=== PATIENT | male | born 1940 | race Caucasian/White ===

== ENCOUNTER 2019-12-21 17:00 | Observation (INO) | payer MEDICARE ==
[~2019-12-21] VITALS: Ht 185.4 cm; Wt 109.0 kg
[~2019-12-21 17:00] MED LIST: ABAC1TAB7 PO; ATOR10TA9 PO; AZIT250T89 PO; CARB1TAB22 PO; CARB25TA3 PO; CEPH-368 PO; DARU800T2 PO; DEXA2TAB PO; DOLU50TA PO; GABA300C10 PO; GLIP5TAB10 PO; HYDR-3240 PO; INSU100V13 SQ; LOSA50TA14 PO; RITO100T PO; TAMS-11 PO; TIZA4CAP2 PO; TRAZ-175 PO
[2019-12-21 18:08] LABS: ALANINE AMINOTRANSFERASE 13 U/L (12-78); ALBUMIN 3.1 g/dL (3.4-5.0); ANION GAP 5 mmol/L (5-15); CALCIUM 8.7 mg/dL (8.5-10.1); CHLORIDE 102 mmol/L (98-107); CREATININE 1.87 mg/dL (0.7-1.3)
[2019-12-21 18:11] LABS: ALKALINE PHOSPHATASE 57 U/L (45-117); BILIRUBIN,TOTAL 1.3 mg/dL (0.2-1.0); TOTAL PROTEIN 7.8 g/dL (6.4-8.2)
[2019-12-21] MEDS ORDERED: SODIUM CHLORIDE FLUSH 10ML SYR IVF ONE (18:30)
[2019-12-21 18:43] LABS: MEAN CORPUSCULAR HEMOGLOBIN 34.7 pg (27.5-34.5); MEAN CORPUSCULAR HGB CONC 34.1 g/dL (33.2-36.2); MEAN CORPUSCULAR VOLUME 101.6 fL (81-97); MEAN PLATELET VOLUME 7.4 fL (7.4-10.4); PLATELET COUNT 99 x10^3/uL (130-400); RED BLOOD COUNT 3.07 x10^6/uL (4.38-5.82); RED CELL DISTRIBUTION WIDTH 16.8 % (9.4-14.8)
[2019-12-21 18:44] LABS: BASOPHILS # (AUTO) 0.02 x10^3/uL (0-0.1); BASOPHILS % (AUTO) 0 % (0-1); EOSINOPHILS # (AUTO) 0.03 x10^3/uL (0-0.4); EOSINOPHILS % (AUTO) 1 % (1-7); LYMPHOCYTES # (AUTO) 1.78 x10^3/uL (1-3.4); LYMPHOCYTES % (AUTO) 37 % (22-44); MD SCAN; MONOCYTES # (AUTO) 0.17 x10^3/uL (0.2-0.8); MONOCYTES % (AUTO) 4 % (2-9); NEUTROPHILS # (AUTO) 2.84 x10^3/uL (1.8-6.8); NEUTROPHILS % (AUTO) 59 % (42-75)
--- NOTE | 2019-12-21 18:51 | NUR ---
RECEIVED REPORT FROM RODRIGO SINGH. PT LAYING IN BED, DENIES PAIN, VSS, RESPIRATIONS EVEN AND UNLABORED, POSITIONED TO COMFORT. CALL LIGHT WITHIN REACH, PHONE IN HAND. UPDATED ON POC. ALL NEEDS MET AT THIS TIME.
--- NOTE | 2019-12-21 19:02 | NUR ---
[facility] proxy charted for RODRIGO Blank.
[2019-12-21 19:35] LABS: AMPHETAMINE SCREEN, URINE Negative (Negative); BARBITURATE SCREEN, URINE Negative (Negative); BENZODIAZEPINE SCREEN, URINE Negative (Negative); CANNABINOID SCREEN, URINE Negative (Negative); COCAINE SCREEN, URINE Negative (Negative); METHADONE SCREEN, URINE Negative (Negative); OPIATE SCREEN, URINE Negative (Negative)
[2019-12-21 19:36] LABS: MICROSCOPIC INDICATED
--- NOTE | 2019-12-21 19:42 | NUR ---
PT SITTING IN BED, EYES CLOSED, RESPIRATIONS EVEN AND UNLABORED, NO SIGNS OF DISTRESS, ASKING FOR FOOD.
[2019-12-21 19:45] LABS: SALICYLATE LEVEL < 1.7 mg/dL (2.8-20.0)
--- NOTE | 2019-12-21 19:52 | NUR ---
PT PROVIDED WITH FOOD, ERP OKAY. PT STATING "I WANT TO GO HOME." PT EDUCATED THAT RESULTS ARE PENDING AND THAT THE ERP WILL BE IN TO UPDATE HIM ON POC. NEEDS MET AT THIS TIME.
[2019-12-21] MEDS ORDERED: DOLU1TAB PO (20:02)
[2019-12-21] MEDS ORDERED: MIRT7.5T8 PO (20:07)
[2019-12-21] MEDS ORDERED: CARB1TAB2 PO (20:07)
--- NOTE | 2019-12-21 20:07 | NUR ---
PER DAUGHTER: "I CAME OVER, AND HE HAD HIS PANTS RETIREMENT AROUND HIM AND HIS ARMS UP AT HIS CHEST, SHAKING. HE COULDN'T TELL ME WHAT HE'D EATEN TODAY." CURRENTLY PT A&OX3, STATED THE YEAR IS 2001.
--- NOTE | 2019-12-21 20:27 | NUR ---
ERP TO BEDSIDE, UPDATING PT ON POC.
--- NOTE | 2019-12-21 20:31 | NUR ---
PT ON PHONE WITH DAUGHTER. NO SIGNS OF DISTRESS.
--- NOTE | 2019-12-21 20:58 | NUR ---
FIRST ATTEMPT TO CALL REPORT TO FLOOR.
--- NOTE | 2019-12-21 21:31 | NUR ---
REPORT GIVEN TO RODRIGO SNYDER.
--- NOTE | 2019-12-21 21:32 | NUR ---
PT SITTING IN BED, WATCHING TV, VSS, RESPIRATIONS EVEN AND UNLABORED.
[2019-12-21 22:01] VITALS: BP 119/74
[2019-12-21] MEDS ORDERED: ACETAMINOPHEN 325 MG TABLET PO PRN (23:30)
[2019-12-21] MEDS ORDERED: POLYETHYLENE GLYCOL 17 GM PACKET PO PRN (23:30)
[2019-12-21] MEDS ORDERED: BISACODYL 10 MG SUPP PR PRN (23:30)
[2019-12-21] MEDS ORDERED: hydrALAzine 20 MG/ML, 1ML IVPush PRN (23:30)
[2019-12-22] MEDS: HEPARIN 5,000 UNITS/ML, 1ML SQ SCH ×4 (00:54→23:27)
[2019-12-22] MEDS: SODIUM CHLORIDE 0.9% 1,000 ML IV SCH ×2 (00:54→16:20)
[2019-12-22 01:17] VITALS: BP 111/64
[2019-12-22 05:59] LABS: MEAN CORPUSCULAR HEMOGLOBIN 34.8 pg (27.5-34.5); MEAN CORPUSCULAR HGB CONC 34.2 g/dL (33.2-36.2); MEAN CORPUSCULAR VOLUME 101.5 fL (81-97); MEAN PLATELET VOLUME 7.2 fL (7.4-10.4); PLATELET COUNT 87 x10^3/uL (130-400); RED BLOOD COUNT 2.97 x10^6/uL (4.38-5.82); RED CELL DISTRIBUTION WIDTH 16.9 % (9.4-14.8)
[2019-12-22 06:06] LABS: ANION GAP 5 mmol/L (5-15); CALCIUM 8.7 mg/dL (8.5-10.1); CHLORIDE 104 mmol/L (98-107)
[2019-12-22 06:10] LABS: CHOL/HDL RATIO 3.7; CHOLESTEROL, TOTAL 128 mg/dL (140-239); CREATININE 1.84 mg/dL (0.7-1.3); HDL CHOL % 27 % (26-37); HDL CHOLESTEROL (DIRECT) 35 mg/dL (40-60); LDL CHOLESTEROL,CALCULATED 63 mg/dL (54-169); LDL/HDL RATIO 1.8 (0.5-3.0); TRIGLYCERIDES 150 mg/dL (50-200); VLDL CHOLESTEROL 30 mg/dL (0-25)
[2019-12-22 06:26] LABS: BASOPHILS # (AUTO) 0.01 x10^3/uL (0-0.1); BASOPHILS % (AUTO) 0 % (0-1); EOSINOPHILS # (AUTO) 0.03 x10^3/uL (0-0.4); EOSINOPHILS % (AUTO) 1 % (1-7); LYMPHOCYTES # (AUTO) 1.81 x10^3/uL (1-3.4); LYMPHOCYTES % (AUTO) 48 % (22-44); MD SCAN; MONOCYTES # (AUTO) 0.13 x10^3/uL (0.2-0.8); MONOCYTES % (AUTO) 4 % (2-9); NEUTROPHILS # (AUTO) 1.78 x10^3/uL (1.8-6.8); NEUTROPHILS % (AUTO) 47 % (42-75)
[2019-12-22 07:00] VITALS: BP 121/78
[2019-12-22] MEDS: CARBIDOPA/LEVODOPA 25 MG/100 MG TABLET PO SCH ×2 (08:22→20:36)
[2019-12-22] MEDS: DARUNAVIR 800 MG TABLET PO SCH (08:22)
[2019-12-22] MEDS: SENNA/DOCUSATE TABLET PO SCH (08:22)
[2019-12-22] MEDS: DOLUTEGRAVIR 50MG TAB PO SCH (08:22)
[2019-12-22] MEDS: GABAPENTIN 300 MG CAPSULE PO SCH ×2 (08:23→20:36)
[2019-12-22] MEDS: LOSARTAN 50MG TABLET PO SCH (08:23)
[2019-12-22] MEDS: INSULIN LISPRO 100 UNITS/ML, PEN SQ-INSULIN SCH ×4 (08:24→20:37)
[2019-12-22] MEDS: RITONAVIR 100 MG TABLET PO SCH (08:25)
[2019-12-22] MEDS: MIRTAZAPINE 7.5 MG PO SCH (09:00)
[2019-12-22 14:28] VITALS: BP 109/70
[2019-12-22 18:56] VITALS: BP 100/61
[2019-12-22] MEDS ORDERED: ATORVASTATIN 10 MG TABLET PO SCH (21:00)
[2019-12-22] MEDS ORDERED: TRAZODONE 100MG TABLET PO SCH (21:00)
[2019-12-23 01:46] VITALS: BP 107/65
[2019-12-23 05:43] LABS: ALBUMIN 2.8 g/dL (3.4-5.0); ANION GAP 6 mmol/L (5-15); CALCIUM 8.6 mg/dL (8.5-10.1); CHLORIDE 105 mmol/L (98-107); MEAN CORPUSCULAR HEMOGLOBIN 34.4 pg (27.5-34.5); MEAN CORPUSCULAR VOLUME 101.2 fL (81-97); MEAN PLATELET VOLUME 7.4 fL (7.4-10.4); PLATELET COUNT 87 x10^3/uL (130-400); RED BLOOD COUNT 2.78 x10^6/uL (4.38-5.82); RED CELL DISTRIBUTION WIDTH 16.9 % (9.4-14.8)
[2019-12-23 05:46] LABS: ALANINE AMINOTRANSFERASE 7 U/L (12-78); ALKALINE PHOSPHATASE 49 U/L (45-117); BILIRUBIN,TOTAL 0.9 mg/dL (0.2-1.0); TOTAL PROTEIN 7.5 g/dL (6.4-8.2)
[2019-12-23 06:06] LABS: BASOPHILS % (AUTO) 0 % (0-1); EOSINOPHILS # (AUTO) 0.05 x10^3/uL (0-0.4); EOSINOPHILS % (AUTO) 2 % (1-7); LYMPHOCYTES # (AUTO) 1.27 x10^3/uL (1-3.4); LYMPHOCYTES % (AUTO) 49 % (22-44); MD SCAN; MONOCYTES # (AUTO) 0.11 x10^3/uL (0.2-0.8); MONOCYTES % (AUTO) 4 % (2-9); NEUTROPHILS # (AUTO) 1.16 x10^3/uL (1.8-6.8); NEUTROPHILS % (AUTO) 45 % (42-75)
[2019-12-23 07:18] VITALS: BP 114/65
[2019-12-23] MEDS: HEPARIN 5,000 UNITS/ML, 1ML SQ SCH ×2 (08:20→16:58)
[2019-12-23] MEDS: DOLUTEGRAVIR 50MG TAB PO SCH (08:22)
[2019-12-23] MEDS: SENNA/DOCUSATE TABLET PO SCH (08:31)
[2019-12-23] MEDS: GABAPENTIN 300 MG CAPSULE PO SCH (08:31)
[2019-12-23] MEDS: LOSARTAN 50MG TABLET PO SCH (08:31)
[2019-12-23] MEDS: CARBIDOPA/LEVODOPA 25 MG/100 MG TABLET PO SCH (08:31)
[2019-12-23] MEDS: INSULIN LISPRO 100 UNITS/ML, PEN SQ-INSULIN SCH ×3 (08:34→17:00)
[2019-12-23] MEDS: DARUNAVIR 800 MG TABLET PO SCH (08:34)
[2019-12-23] MEDS: RITONAVIR 100 MG TABLET PO SCH (08:34)
[2019-12-23] MEDS: MIRTAZAPINE 7.5 MG PO SCH (08:36)
[2019-12-23 14:18] VITALS: BP 103/62
== END 2019-12-23 18:00 | disposition home health service (06) ==
LOC: ED 20:30 → 4NE 21:47 → EDIP 22:12 → INTOOBSV 22:12 → 4NE 22:51 → 3N 12-22 15:13
PROVIDERS: ADMIT Family Medicine; ATTEND Family Medicine
DX: R41.0 Disorientation, unspecified (principal); E78.5 Hyperlipidemia, unspecified; D53.9 Nutritional anemia, unspecified; D69.6 Thrombocytopenia, unspecified; R79.89 Other specified abnormal findings of blood chemistry; E80.6 Other disorders of bilirubin metabolism; G62.9 Polyneuropathy, unspecified; B20 Human immunodeficiency virus [HIV] disease; R63.4 Abnormal weight loss; R63.0 Anorexia; J84.10 Pulmonary fibrosis, unspecified; G25.81 Restless legs syndrome; I12.9 Hypertensive chronic kidney disease with stage 1 through stage 4 chronic kidney disease, or unspecified chronic kidney disease; E11.22 Type 2 diabetes mellitus with diabetic chronic kidney disease; N18.3 Chronic kidney disease, stage 3 (moderate); G93.40 Encephalopathy, unspecified; R62.7 Adult failure to thrive; R53.1 Weakness; R65.10 Systemic inflammatory response syndrome (SIRS) of non-infectious origin without acute organ dysfunction; R17 Unspecified jaundice; J98.4 Other disorders of lung; E87.1 Hypo-osmolality and hyponatremia; D72.819 Decreased white blood cell count, unspecified; Z79.899 Other long term (current) drug therapy
CPT/HCPCS: 36415; 70450; 70551; 71045; 71250; 74176; 80048; 80053; 80061; 80307; 81001; 82607; 82962; 83036; 84443; 85025; 87536; 92523; 93005; 93880; 96360; 96361; 96372; 97129; 97162; 97165; 97530; 99285; G0378; J1644; J1815; J7030